=== PATIENT | female | born 1955 | race Caucasian/White ===

== ENCOUNTER 2018-03-20 17:53 | Emergency (ER) ==
[2018-03-20 18:02] VITALS: BP 195/109; TEMP 98.1; BMI 31.3
[2018-03-20] MEDS ORDERED: PHENERGAN 25 MG/ML VIAL IM STA (20:07)
[2018-03-20] MEDS ORDERED: MORPHINE 2 MG/ML SYRINGE IM STA (20:07)
--- NOTE | 2018-03-20 20:27 | CT ---
EXAM: CT of the lumbar spine without contrast History: Lower back trauma. Technique: Multiplanar CT images through the lumbar spine were obtained without the administration o f IV contrast Findings: 1 cm simple appearing right renal cyst. Atherosclerotic vascular calcifications. No acute fracture or subluxation of the lumbar spine. Moderate to severe disc space narrowing at L5- S1 with endplate sclerosis, osteophyte formation and vacuum disc phenomenon. Mild disc space narrowi ng seen elsewhere. Small to modest disc bulge at L4-L5 with no significant central canal stenosis. No significant bony neural foraminal narrowing is seen at any level. Impression: 1. No acute osseous abnormality of the lumbar spine. 2. Moderate to severe degenerative disc disease at L5-S1.
--- NOTE | 2018-03-20 20:30 | CT ---
EXAM: CT of the pelvis without contrast History: Pelvic trauma. Technique: Multiplanar CT images through the pelvis were obtained without the administration of IV c ontrast Findings: Atherosclerotic vascular calcifications. No bladder wall thickening. Small fat-containin g left inguinal hernia. Uterus is not seen. No pelvic fluid. No acute fracture or dislocation. Mild to moderate narrowing of bilateral hip joints with small oste ophytes. Moderate to severe degenerative disc disease at L5-S1. Surrounding soft tissues demonstrat e no acute findings. Impression: No acute osseous abnormality
--- NOTE | 2018-03-20 20:37 | ED.PDOC ---
General ED Provider: Dr. URMILA ORTIZ-ER Chief Complaint: Fall Stated Complaint: i was pushing furniture and hurt my back Time Seen by Physician: 17:55 Mode of Arrival: Walk-In Information Source: Patient Exam Limitations: No limitations Nursing and Triage Documentation Reviewed and Agree: Yes Reviewed sepsis parameters & appropriate labs ordered?: Yes System Inflammatory Response Syndrome: Not Applicable Sepsis Protocol: For patient's 13 years and over: Temp is 96.8 and below OR 101 and greater Pulse >90 BPM Resp >20/minute Acutely Altered Mental Status Are patient's symptoms suggestive of a new infection, such as: -Pneumonia -Skin, Soft Tissue -Endocarditis -UTI -Bone, Joint Infection -Implantable Device -Acute Abdominal Infection -Wound Infection -Meningitis -Blood Stream Catheter Infection -Unknown Musculoskeletal Complaint Exam - Back Pain Complaint/Exam Mechanism of Injury: Reports: Trauma Onset/Duration: several hours Timing: Constant Initial Severity: Mild Current Severity: Moderate Location: Reports: Discrete Character: Reports: Dull, Aching, Throbbing, Spasmodic, Stiffness Aggravating: Reports: Movements, Lifting, Bending, Walking Alleviating: Reports: None Associated Signs and Symptoms: Denies: Swelling, Redness, Bruising, Fever, Weakness, Numbness, Tingling, Abdominal pain, Flank pain, Bladder incontinence, Bowel incontinence, Weight loss, Pain with weight bearing Focal Tenderness: Yes Paraspinal Muscle Tenderness: Yes Paraspinal Muscle Spasm: No Scoliosis: No Lordosis: No Kyphosis: No SLR Test: Right Negative, Left Negative Hip Motion Testing Pain: Right Negative, Left Negative Focal Weakness: Present: None Focal Sensory Loss: Present: None Gait: Present: Normal, Abnormal Differential Diagnoses: Herniated Disk, Strain, Sprain Review of Systems - Review Of Systems Constitutional: Reports: No symptoms Eyes: Reports: No symptoms Ears, Nose, Mouth, Throat: Reports: No symptoms Respiratory: Reports: No symptoms, Other Cardiac: Reports: No symptoms GI: Reports: No symptoms : Reports: No symptoms Musculoskeletal: Reports: Back pain, Muscle pain Skin: Reports: No symptoms Neurological: Reports: No symptoms Endocrine: Reports: No symptoms Hematologic/Lymphatic: Reports: No symptoms All Other Systems: Reviewed and Negative Past Medical History - Past Medical History Previously Healthy: No Endocrine: Reports: Unknown Cardiovascular: Reports: Unknown Respiratory: Reports: Unknown Hematological: Reports: Unknown Gastrointestinal: Reports: Unknown Genitourinary: Reports: Unknown Neuro/Psych: Reports: Unknown Musculoskeletal: Reports: Unknown Cancer: Reports: Unknown Last Menstrual Period: menopause - Surgical History General Surgical History: Reports: Unknown - Family History Family History: Reports: Unknown - Social History Smoking Status: Current every day smoker, Light tobacco smoker Hx Substance Use: No Alcohol Screening: None Physical Exam - Physical Exam Appearance: Well-appearing, No pain distress, Well-nourished Eyes: KEREN, EOMI, Conjunctiva clear ENT: Ears normal, Nose normal, Oropharynx normal Neck: Supple Respiratory: Airway patent, Breath sounds clear, Breath sounds equal, Respirations nonlabored Cardiovascular: RRR, Pulses normal, No rub, No murmur GI/: Soft, Nontender, No masses, Bowel sounds normal, No Organomegaly Musculoskeletal: Limited ROM Skin: Warm, Dry, Normal color Neurological: Sensation intact, Motor intact, Reflexes intact, Cranial nerves intact, Alert, Oriented Psychiatric: Affect appropriate, Mood appropriate Interpretation - Radiology Interpretation Radiology Interpretation By: Radiologist Radiology Results: Positive Exam Interpreted: CT Scan Critical Care Note - Critical Care Note Total Time (mins): 0 Course - Course Orders, Labs, Meds: Orders Category Date Time Status Morphine Sulfate [Morphine 2 mg/ml Syringe] MEDS 03/20/18 20:07 Discontinued 4 mg IM ONCE STA Promethazine HCl [Phenergan 25 mg/ml Vial] MEDS 03/20/18 20:07 Discontinued 25 mg IM ONCE STA CT LUMBAR SPINE W/O CONTRAST Stat RADS 03/20/18 19:[address] PELVIS W/O CONTRAST Stat RADS 03/20/18 19:00 Completed Medications Discontinued Medications Generic Name Dose Route Start Last Admin Trade Name Danae PRN Reason Stop Dose Admin Morphine Sulfate 4 mg 03/20/18 20:07 03/20/18 20:21 Morphine 2 Mg/Ml Syringe IM 03/20/18 20:08 4 mg ONCE STA Administration Promethazine HCl 25 mg 03/20/18 20:07 03/20/18 20:15 Phenergan 25 Mg/Ml Vial IM 03/20/18 20:08 25 mg ONCE STA Administration Vital Signs: Temp Pulse Resp BP Pulse Ox 03/20/18 17:54 98.1 F 107 H 20 195/109 H 98 Departure - Departure Time of Disposition: 20:37 Disposition: HOME SELF-CARE Discharge Problem: Lumbar strain Qualifiers: Encounter type: initial encounter Qualified Code(s): S39.012A - Strain of muscle, fascia and tendon of lower back, initial encounter Instructions: Low Back Strain (ED) Condition: Good Pt referred to PMD for follow-up: No IPMP verified?: No Additional Instructions: norco 5mg q 6hrs prn clancy #10--flexeril 5mg tid prn #30--f/u wtih pcp Allergies/Adverse Reactions: Allergies No Known Allergies Allergy (Unverified 03/20/18 18:04) Home Medications: Ambulatory Orders Diazepam 10 mg PO TID 03/20/18 Disposition Discussed With: Patient
== END 2018-03-20 20:50 | disposition home or self-care (01) ==
LOC: ED 17:53
DX: S39.012A Strain of muscle, fascia and tendon of lower back, initial encounter (principal); F17.210 Nicotine dependence, cigarettes, uncomplicated; W19.XXXA Unspecified fall, initial encounter
CPT/HCPCS: 96372; 99283